=== PATIENT | female | born 1930 | race Caucasian/White ===

== ENCOUNTER → 2016-10-29 | Outpatient (CLI) | payer MEDICARE ==
[~2016-10-29] MED LIST: ALPRAZOLAM0.25 MG PO; ASPIRIN 81MG TA81 MG PO; ASPRIN OR; BISOPROLOL 5MG T5 MG PO; CALCIUM GUMMIES OR; CARTIA XT240 MG PO; CEFTIN500 MG PO; CELEBREX200 MG PO; CENTRUM SILVER1 TA2 PO; COMM1 XX; COUMADIN 5MG TAB5 MG PO; COUMADIN2 MG PO; CYMBALTA60 M1 PO; DIGOXIN0.125 MG PO; DILTIAZEM ER 1120 MG PO; DILTIAZEM30 MG PO; FERROUS SULFAT325 MG PO; FUROSEMIDE 20MG20 MG PO; GABAPENTIN300 MG PO; LASIX 20MG. TAB20 MG PO; LEVOTHYROXINE0.05 M2 PO; LISINOPRIL2.5 M1 PO; MIDODRINE HCL5 MG PO; MIRALAX17 GM/DOSE PO; MOBIC15 MG PO; NIRAVAM0.25 MG PO; NITROSTAT0.4 MG SL; OMEPRAZOLE40 MG PO; OSCAL 500MG. T500 MG PO; PERCOCET 5/3251 EACH PO; POTASSIUM CHLO10 ME3 PO; SERTRALINE 100100 MG PO; SYNTHROID0.025 MG PO; TYLENOL W/CODEI1 TA2 PO; VITAMIN D31000 IU PO; WALK4 XX; WARFARIN 3MG TAB3 MG PO; WARFARIN SOD5 M1 PO; WARFARIN SODIU2.5 MG PO
--- NOTE | 2016-10-29 14:16 | RADIOLOGY REPORT PS360 ---
PROCEDURE: 2-D M-mode and color Doppler study INDICATIONS FOR THE TEST: Chest pain COPD Heart Murmur Tobacco Smoking Palpitations Fatigue Syncope Edema HypertensionXDiabetes Mellitus Rheumatic Fever SOBXDOE Obesity HyperlipidemiaX Family History HD Additional History CAD AF PACEMAKER PATIENT INFORMATION HEIGHT: 61 WEIGHT:105 GENDER: Female B/P:125/65 2-D/M-MODE INTERPRETATION: 2-D MEASUREMENTS OBSERVED VALUES IN CMS Right Ventricular Dimension (RVDd) 2.1 Interventricular Septum (Thickness)(IVsd) 1.0 Left Ventricular Internal Dimensions(LVIDd) 4.4 Left Ventricular Posterior Wall (Thickness)(LVPWd) .9 Aortic Root 2.5 Aortic Cusp Separation 1.0 Left Atrial Dimensions (LAD) 3.8 2D 1. Left atrium is qualitatively moderately enlarged, left ventricle is normal size, there is no concentric left ventricular hypertrophy, visually estimated ejection fraction of 55% with no obvious regional wall motion abnormality. 2. The right atrium is moderately enlarged, right ventricle is mildly dilated with normal contractility, there is pacemaker lead seen in the right atrium and right ventricle. 3. The aortic valve is thickened and calcified with mild restriction the leaflet mobility. 4. The mitral valve leaflets are minimally thickened, there is mild mitral calcification present. 5. The tricuspid valve leaflets are minimally thickened. 6. The pulmonic valve is not well visualized. 7. No significant pericardial effusion noted. DOPPLER INTERROGATION: 1. The aortic outflow velocities mildly increased, does not represent any significant aortic stenosis, there is mild aortic insufficiency present. 2. Mitral inflow velocity within normal range, there is no mitral stenosis, there is moderate mitral regurgitation. 3. There is moderate to severe tricuspid regurgitation seen, calculated right ventricular systolic pressure is 50 mmHg consistent with moderate pulmonary hypertension. CONCLUSION: 1. Moderate biatrial enlargement, normal left ventricular size, visually estimated ejection fraction 55% with no obvious regional wall motion abnormality. 2. Thickened and calcified aortic valve without significant aortic stenosis, there is mild aortic insufficiency. 3. Moderate mitral and moderate to severe tricuspid regurgitation, calculated right ventricular systolic pressure 50 mmHg consistent moderate pulmonary hypertension, inferior vena cava is mildly dilated with normal inspiratory collapse. 4. No significant pericardial effusion noted.
== END ==
LOC: RT 08:49
DX: I25.10 Atherosclerotic heart disease of native coronary artery without angina pectoris (principal); I48.0 Paroxysmal atrial fibrillation; I11.9 Hypertensive heart disease without heart failure; I34.0 Nonrheumatic mitral (valve) insufficiency; E78.5 Hyperlipidemia, unspecified; Z79.01 Long term (current) use of anticoagulants

== ENCOUNTER 2017-05-23 18:13 | Inpatient (IN) | payer MEDICARE ==
[~2017-05-23] VITALS: Ht 162.6 cm; Wt 48.7 kg
[~2017-05-23 18:13] MED LIST changes: +ALPRAZOLAM XR0.5 MG PO; -ALPRAZOLAM0.25 MG PO; +CARTIA XT180 M1 PO; -CARTIA XT240 MG PO
[2017-05-23 18:15] VITALS: BP 161/100
[2017-05-23] MEDS ORDERED: CELECOXIB200 MG PO (18:17)
--- NOTE | 2017-05-23 18:27 | Emergency Room Report ---
History of Present Illness Time Seen by [id number] Presenting Problem in Triage Pt arrived: Presenting Problem: Onset of symptoms date/time:/ or onset unknown for: Treatment Prior to Arrival: LINE WELDER Provided by: Sepsis Risk Assessment: Temp: B/P: MAP: Pulse: Resp: Recent fever? Clinical Suspician of Infection? Mental Status: Sepsis Risk: Have you (or family members/close friends) recently traveled outside the [place]? If Yes, where/when: Have you had exposure to infectious disease within the past month? TB? Other? Specify: Source patient, RN notes reviewed Exam Limitations no limitations [place] car and placed it on her walker, she was intending to put her coat on but instead fell onto her back and now comes to the ED with severe pain in her back and her right hip. She denies any LOC and she answers questions appropriately Cardiac Chest Pain Chest pain indicative of cardiac No ALLERGIES Coded Allergies: amiodarone (Mild, 03/05/16) Home Medications Active Scripts Warfarin Sodium (Coumadin) 2 MG PO DAILY #30 TAB Prov: 05/19/15 Ferrous Sulfate 325 MG PO TID #90 ECT Ref 2 Prov: 05/19/15 Device (Walker, Rolling (4-Wheel)) 1 UNIT XX UD #1 Prov: 05/19/15 Device (Commode, Bedside) 1 UNIT XX UD #1 DEV Prov: 05/19/15 Reported Medications Midodrine Hydrochloride (Midodrine Hcl) 5 MG PO TID Furosemide (Lasix 20MG) 20 MG PO QODP DILTIAZEM HCL (Cartia Xt) 240 MG PO DAILY Omeprazole (Omeprazole 40MG) 40 MG PO QHS Levothyroxine Sodium 50 MCG PO DAILY DULOXETINE HCL (Cymbalta) 60 MG PO DAILY ALPRAZOLAM (Alprazolam 0.25MG) 0.25 MG PO TIDP DIGOXIN (Digox) 0.125 MG PO BID BISOPROLOL FUMARATE (Bisoprolol 5MG) 5 MG PO DAILY Celecoxib 200 MG PO DAILY Multivitamin/Iron/Folic Acid (Centrum Adults Tablet) 1 EACH PO DAILY POTASSIUM CHL (Potassium Chloride) 10 MEQ PO QOD OXYCODONE HCL/ACETAMINOPHEN (Oxycodon-Acetaminophen 2.5-325) 1 TAB PO Q6HP PRN PAIN #60 CHOLECALCIFEROL (VITAMIN D3) (Vitamin D3) 1,000 IUNITS PO DAILY History Medical History General CAD? No Angina: Yes NV: No Hypertension? Yes Hyperlipidemia? No CHF? Yes DVT? No PE? No COPD? No Asthma? No Anemia? Yes GERD? Yes Gastric ulcers? No Hernia? Yes Thyroid Problems? Yes Hypothyroidism? Yes CVA? Yes Seizures? No Diabetes? No End Stage Renal Disease? No UTI? Yes Stones? Yes GB Disease: Yes Nephritic Syndrome? No Asplenia? No Hepatitis? No Sickle Cell Disease? No Arthritis? Yes Cataracts? Yes Glaucoma? No MRSA? No TB? No Anxiety? Yes Cancer? Yes Site: L BREAST More? No Additional hx: 1. Atrial Fib 2. Chronic Back Pain Immunization Hx DT/Tetanus > 10 Years Ago Flu 2015-FSN Pneumonia Received In Past Surgical Hx Previous Surgery?Y BACK X2 MASTECTOMY L Cholecystectomy RECONSTRUCTIVE BREAST L BILATERAL CATARACTS CUSTOM PROTECTION OFFICER Hx LMP N/A Family History Family Hx Diabetes No CAD Yes Hypertension Yes Hyperlipidemia Yes Cancer Yes TB No Social History Smoking Hx Packs/day N/A Alcohol Alcohol: No Review of Systems All Other Systems Reviewed and Negative Constitutional see HPI Musculoskeletal see HPI Psychiatric/Neurological see HPI Physical Exam Vital Signs Vital Signs Date Time Temp Pulse Resp B/P Pulse O2 O2 Flow FiO2 Ox Delivery Rate 05/23 2006 98.0 85 18 142/80 77 05/23 1829 18 05/23 1815 98.0 88 20 161/100 90 General Appearance moderate distress Neck collar in place Respiratory Status No: respiratory distress. Cardiovascular normal exam, regular rate/rhythm Extremities painful to try to move right hip Neurologic alert, customer engagement specialist II-XII nml as tested Medical Decision Making LABS/Meds/Orders Pt receiving controlled substance in ED? Yes Ben was queried for this patient? No Reason not queried - emergent pt cond=no time Results/Orders Laboratory Tests 05/23/171956: B-Natriuretic Peptide Pending 05/23/171956: Sodium Pending, Potassium Pending, Chloride Pending, Carbon Dioxide Pending, BUN Pending, Creatinine Pending, Estimated Creat Clear Pending, Estimated GFR (MDRD) Pending, Glucose Pending, Calcium Pending, Total Bilirubin Pending, AST Pending, ALT Pending, Alkaline Phosphatase Pending, Creatine Kinase Pending, Total Protein Pending, Albumin Pending, Globulin Pending, Albumin/Globulin Ratio Pending, PT Pending, INR Pending, WBC 10.7, RBC 4.19 L, Hgb 12.9, Hct 41.3, MCV 98.7 H, RDW 14.6, Plt Count 276, MPV 8.2, Gran % 85.8 H, Gran # 9.2 H, Total Counted Pending, Lymphocytes % 5.8 L, Monocytes % 4.9, Eosinophils % 3.0, Basophils % 0.6, Neutrophils Pending, Lymphocytes (Manual) Pending, Lymphocytes # 0.6 L, Monocytes # 0.5, Eosinophils # 0.3, Basophils # 0.1, Platelet Estimate Pending, PUBS MCHC 31.2 L, MCH 30.7 Current Medication Orders Sig/Spencer Start time Last Medication Dose Route Stop Time Status Admin Morphine Sulfate 4 MG ONCE ONE 05/23 1830 DC 05/23 IV 05/23 Ondansetron HCl 4 MG ONCE ONE 05/23 1830 DC 05/23 IV 05/23 Ondansetron HCl 0 .STK-MED ONE 05/23 1827 DC .ROUTE Morphine Sulfate 0 .STK-MED ONE 05/23 1826 DC .ROUTE Orders Procedure Date/time Status DIET-NOTHING BY MOUTH 05/24 B Active CHEST-PORTABLE 05/23 2017 Active PROTHROMBIN TIME 05/23 2017 Active BRAIN NATRIURETIC PEPTIDE 05/23 2017 Active DIFFERENTIAL-WBC 05/23 1957 Active CHEST-AP VIEW ONLY 05/[address] THORACIC SPINE W/O CONTRAST 05/[address] LUMBAR SPINE W/O CONTRAST 05/[address] CERVICAL SPINE W/O CONT. 05/[address] SCAN REQ 05/[address] SCAN REQ 05/23 183 Complete HIP RT 2-3V W/PELVIS IF PERFOR 05/23 1823 Active CPK 05/23 1823 Active CBC WITH AUTO DIFF 05/23 1823 Active CHEM 12 PROFILE 05/23 1823 Active Departure Departure Time of Disposition 2012 Disposition Still a Patient Clinical Impression Primary Impression: Chronic atrial fibrillation Secondary Impressions: Cardiac pacemaker in situ Fracture of right hip requiring operative repair Qualifiers: Encounter type: subsequent encounter Fracture type: closed Fracture healing: with routine healing Qualified Code: S72.001D - Fracture of unspecified part of neck of right femur, subsequent encounter for closed fracture with routine healing Condition STABLE Referrals Kendrick Saleh MD (Family) Additional Instructions Being made a full Admit to Dr. Saleh with Dr. Roman covering and referral to Dr. Villasenor Discharge Counseling Counseled pt/family regarding diagnosis, test results, medications/RX, home care, follow up needs ED Critical Care Critical Care No If Critical Care minutes are documented, the time involved in the performance of seperately reportable procedures was not counted toward critical care time documented. I directly delivered medical care to this critically ill and/or injured patient. Timely evaluation and treatment was necessary to address the significant organ system(s) dysfunction present in this patient. at 2020
[2017-05-23] MEDS ORDERED: POTASSIUM CHLO10 ME3 PO (18:29)
[2017-05-23] MEDS ORDERED: CENTRUM ADULTS1 EACH PO (18:29)
[2017-05-23] MEDS ORDERED: OXYCODONE AND A1 TA3 PO (18:30)
[2017-05-23] MEDS ORDERED: VITAMIN D-32000 UNIT PO (18:37)
--- OUTSIDE RECORDS SUMMARY | 2017-05-23 18:37 | External Medical Summary Rpt | CCD ---
Author Author Conduent Organization [employer] Address Unknown Phone Unavailable Purpose Continuity of Care Document - through 2016
--- OUTSIDE RECORDS SUMMARY | 2017-05-23 18:37 | External Medical Summary Rpt | CCD ---
Author Author , JING CH Address Unknown Phone [email or web address] Care Team Providers Care Od Grinder Operator Name Role Phone [facility], Purpose Continuity of Care Document - 09-27-2012 through 2016 Problems Code Diagnosis DOS Provider Status [id number] Chest pain Allergies, Adverse Reactions, Alerts Type Drug Allergy Adverse Reaction to Substance Substance Reaction Severity Amiodarone NA-DIZZINESS Unknown Vital Signs 09-27-2012 07:56 Name Value Interpretat Reference Comment ion Range BP 76 mm[Hg] Diastolic BP Systolic 137 mm[Hg] Heart 90 /min Rate/Pulse O2% 94 % Respiratory 20 /min Rate 09-27-2012 07:49 Name Value Interpretat Reference Comment ion Range Body 97.8 [degF] Temperature 09-27-2012 07:18 Name Value Interpretat Reference Comment ion Range Body 97.8 [degF] Temperature BP 103 mm[Hg] Diastolic BP Systolic 125 mm[Hg] Heart 101 /min Rate/Pulse O2% 94 % Respiratory 18 /min Rate Results Labs Lab Lab Date Result Refere Interp Status Commen Order Detail nces retati t Range on COMPREHENSIVE METABOLIC PANEL (09-27-2012 06:38) Glucose 91 74-106 complet 013 mg/dL ed Bld-mCn 06:38 c BUN 14 7-18 complet Bld-mCn 013 mg/dL ed c 06:38 Creat 0.9 0.6-1.0 complet SerPl-m 013 mg/dL ed Cnc 06:38 GFR 60 59- complet (ESTIMA 013 ML/MIN ed CESILIA) 06:38 Sodium 136 136-145 complet SerPl-s 013 mmoL/L ed Cnc 06:38 Potassi 04-02-2 3.9 3.5-5.1 complet um 013 mmoL/L ed SerPl-s 06:38 Cnc Chlorid 09-27-2 102 98-107 complet e 013 mmoL/L ed SerPl-s 06:38 Cnc CO2 02-2 27 21.0-32 complet SerPl-s 013 mmoL/L .0 ed Cnc 06:38 Calcium 04-02-2 8.9 8.5-10. complet 013 mg/dL 1 ed SerPl-m 06:38 Cnc Prot -02-2 7.2 6.4-8.2 complet SerPl-m 013 gm/dL ed Cnc 06:38 Albumin 04-02-2 3.4 3.4-5.0 complet 013 gm/dL ed SerPl-m 06:38 Cnc Globuli 09-27-2 3.8 1.3-3.2 complet n 013 gm/dL ed Ser-mCn 06:38 c Albumin 02-2 0.9 UNK 1.1-1.8 complet /Glob 013 ed SerPl-m 06:38 Rto Bilirub 09-27-2 0.4 0.2-1.0 complet 013 mg/dL ed SerPl-m 06:38 Cnc AST 02-2 23 U/L 15-37 complet SerPl-c 013 ed Cnc 06:38 ALT 02-2 30 U/L 30-65 complet SerPl-c 013 ed Cnc 06:38 ALP 02-2 97 U/L 50-136 complet SerPl-c 013 ed Cnc 06:38 PROTIME/INR (09-27-2012 06:38) PROTHRO -02-2 21.3 9.8-11. complet MBIN 013 SECONDS 0 ed TIME 06:38 INR Bld 09-27-2 2.06 0.9-1.1 complet 013 UNK ed 06:38 CBC with AUTO DIFF (09-27-2012 06:38) WBC # 04-02-2 6.4 4.8-10. complet Bld 013 K/MM3 8 ed Auto 06:38 RBC # 04-02-2 4.62 4.2-5.4 complet Bld 013 M/mm3 ed Auto 06:38 Hgb 04-02-2 13.0 12.2-16 complet Bld-mCn 013 g/dL .2 ed c 06:38 Hct Fr 02-2 40.4 % 37.0-47 complet Bld 013 .0 ed 06:38 MCV RBC -02-2 87.4 fl 82.2-97 complet 013 .8 ed 06:38 MCH RBC -02-2 28.1 pg 27-31.2 complet Qn 013 ed Auto 06:38 MEAN 02-2 32.1 31.8-35 complet CORPUSC 013 g/dl .4 ed ULAR 06:38 HGB CONC RDW RBC 02-2 15.0 % 11.5-17 complet Auto 013 .5 ed 06:38 Platele 09-27-2 221 142-424 complet t Bld 013 K/mm3 ed Ql 06:38 Manual MEAN 8.0 fl 7.4-10. complet PLATELE 013 4 ed T 06:38 VOLUME Granulo 02-2 71.5 % 37.0-80 complet cytes 013 .0 ed Fr Bld 06:38 Auto LYMPH % 02-2 16.6 % 10-50.0 complet 013 ed 06:38 Monocyt 0402-2 6.9 % 1.7-9.3 complet es Fr 013 ed Bld 06:38 Auto Eosinop 04-02-2 4.4 % 0.1-12. complet hil Fr 013 0 ed Bld 06:38 Auto Basophi -02-2 0.6 % 0.1-2.0 complet ls Fr 013 ed Bld 06:38 Auto Granulo -02-2 4.6 1.8-7.8 complet cytes # 013 K/mm3 ed Bld 06:38 Auto Lymphoc 04-02-2 1.1 0.7-4.5 complet ytes Fr 013 K/mm3 ed Bld 06:38 Auto Monocyt 04-02-2 0.4 0.1-1.0 complet es # 013 K/mm3 ed Bld 06:38 Auto Eosinop 04-02-2 0.3 0.0-0.4 complet hil # 013 K/mm3 ed Bld 06:38 Auto Basophi -02-2 0.0 0-0.2 complet ls # 013 K/MM3 ed Bld 06:38 Auto Encounters Encounter Start End Date Code Location Performer Type Date Emergency KARAN Horvath MD (ER) 3 06:37 3 08:09 [facility]
--- OUTSIDE RECORDS SUMMARY | 2017-05-23 18:37 | External Medical Summary Rpt ---
Author Author JING Ramires, JING Ramires Organization [employer] Address Unknown Phone Unavailable
--- OUTSIDE RECORDS SUMMARY | 2017-05-23 18:37 | External Medical Summary Rpt | CCD ---
Author Author , JING Organization JING Address Unknown Phone [email or web address] [email or web address] Name Date Rout CVX Reac Dose Comm Prov Is Faci e tion ent ider Refu lity Give sed n Infl 11-0 135 0.5 Hist D049 No D049 uenz 7-20 mL oric 01 01 a, 17 al High Info rmat Dose ion - Sour ce Unsp ecif ied Tdap 08-0 Intr 115 0.5 Hist D049 No D049 , 7-20 amus mL oric 01 01 Adso 17 cula al rbed r Info rmat ion - Sour ce Unsp ecif ied PPV2 08-0 Intr 33 0.5 Hist D049 No D049 3 7-20 amus mL oric 01 01 17 cula al r Info rmat ion - Sour ce Unsp ecif ied Td 03-0 Intr 9 999 Hist H149 No H149 (mahog[place] 7-19 amus oric lt), 97 cula al r Info adso rmat rbed ion - Sour ce Unsp ecif ied
--- OUTSIDE RECORDS SUMMARY | 2017-05-23 18:37 | External Medical Summary Rpt | CCD ---
Author Author , JING Organization JING Address Unknown Phone [email or web address] Immunization Name Date Rout CVX Reac Dose [...]
--- OUTSIDE RECORDS SUMMARY | 2017-05-23 18:37 | External Medical Summary Rpt | CCD ---
Author Author , JING CH Address Unknown Phone .[employer] Care Team Providers Care Blueprint Engineer Name Role Phone [facility], Purpose Continuity of Care Document - 09-27-2012 through 2016 Problems Code Diagnosis DOS Provider Status [id number] Chest pain Allergies, Adverse Reactions, Alerts Type [...] Horvath MD (ER) 3 06:37 3 08:09 [facility]
[2017-05-23 20:12] LABS: LYMPH # 0.6 K/mm3 (0.7-4.5); LYMPH % 5.8 % (10-50.0)
[2017-05-23 20:13] LABS: HEMOGLOBIN 12.9 g/dL (12.2-16.2)
--- OUTSIDE RECORDS SUMMARY | 2017-05-23 20:31 | External Medical Summary Rpt | CCD ---
Author Author , JING Organization JING Address Unknown Phone [email or web address] Immunization Name Date Rout CVX Reac Dose [...]
--- OUTSIDE RECORDS SUMMARY | 2017-05-23 20:31 | External Medical Summary Rpt | CCD ---
Author Author , JING Organization JING Address Unknown Phone [email or web address] Immunization Name Date Rout CVX Reac Dose [...]
--- OUTSIDE RECORDS SUMMARY | 2017-05-23 20:31 | External Medical Summary Rpt | CCD ---
Author Author , JING CH Address Unknown Phone [email or web address] Care Team Providers Care Catering Barista Name Role Phone [facility], [facility] Purpose Continuity of Care Document - 09-27-2012 through 2016 Problems Code Diagnosis DOS Provider Status [id number] Chest pain [facility] Allergies, Adverse Reactions, Alerts Type Drug Allergy [...] Horvath MD (ER) 3 06:37 3 08:09 [facility]
--- OUTSIDE RECORDS SUMMARY | 2017-05-23 20:31 | External Medical Summary Rpt | CCD ---
Author Author , JING CH Address Unknown Phone [email or web address] Care Team Providers Care Research Project Manager Name Role Phone [facility], [facility] Purpose Continuity of Care Document - 09-27-2012 through 2016 Problems Code Diagnosis DOS Provider Status [id number] Chest pain [facility] Allergies, Adverse Reactions, Alerts Type Drug [...] Horvath MD (ER) 3 06:37 3 08:09 [facility]
[2017-05-23 21:09] LABS: NEUTROPHILS 89 % (42-76)
--- NOTE | 2017-05-23 21:20 | RADIOLOGY REPORT PS360 ---
CT THORACIC SPINE W/O CONTRAST Ordering Physician: Beka Cadet MD Patient Age: 87 years: Female HISTORY: PT FELL patient fell this evening with thoracic pain cervical and lumbar pain. TECHNIQUE: Patient scanned on backboard. Helical CT scanning performed through the thoracic spine with sagittal reformatted CT workstation COMPARISON :Previous plain films thoracic spine 04/04/2012. Also chest film 12/31/[address] abdomen reconstructions included lower thorax. FINDINGS No acute fracture nor subluxation thoracic spine.. Demineralization. Again see kyphosis of the lumbar spine which is similar CXR studies from earlier this year. Partial fusion anterior aspect of the T 5/6 disc. There is kyphosis of the mid T-spine most pronounced in T5 through T8. Disc space narrowing is seen all these levels reflecting early degenerative disc changes. Anterior marginal osteophytes most evident to this segment at mid T-spine as well. The minor wedge configuration anterior T5 and [id number] on C report is a stable feature which is seen on old T-spine study from 2011. Not of current significance. . No significant posterior hypertrophic ridging. No Spinal stenosis. Foraminal encroachment. Mild facet arthropathy most evident lower pelvis T-spine. No acute compression fractures. . Anterior marginal osteophytes are most evident to the mid T-spine. The disc space narrowing most notable Cardiomegaly. Left atrial enlargement. Particularly notable. Coronary artery calcification or stents.. Chronic changes along with some mild pleural-parenchymal scarring posteriorly. No significant mass lesion evident. Airway satisfactory. IMPRESSION: No acute fracture or subluxation thoracic spine . No significant change since previous plain films T-spine Overall Stable appearing kyphosis & degenerative changes most evident in the T-spine.. Cardiomegaly. LAD. Pulmonary venous engorgement. Question mild vascular congestion..
--- NOTE | 2017-05-23 21:25 | RADIOLOGY REPORT PS360 ---
CT CERVICAL SPINE W/O CONT Ordering Physician: Beka Cadet MD Patient Age: 87 years: Female HISTORY: PT FELL.. neck pain. Thoracic pain. Lumbar pain. TECHNIQUE: Helical CT scanning performed through the cervical spine with sagittal and coronal reconstructions on CT workstation COMPARISON :No previous cervical studies. Previous head CT plywood layup line core layer view from May 13, 2004 does show upper C-spine & the width moderate anterior subluxation of C3 on 4 with moderate subluxation at that time FINDINGS No acute fracture cervical spine. Most likely chronic long-standing progressive subluxation C3 on 4 disc above a segment fused disc at C4/5. Prevertebral soft tissues appear normalThe cervical vertebral bodies with no compression fractures or fracture. . C1 /C2 relationships appears satisfactory. Calcification about the dens. No previous dedicated cervical studies. There is a limited very limited lateral CT plywood layup line core layer view from May 13, [address] study which does vaguely suggest ~4-5 mm anterior subluxation of C3 on 4 in 2003.. Slight progression, more pronounced subluxation today but these changes appear to be slowly progressive long-standing primarily degenerative changes but possibly initiated krks-ac-hpha event, question possibly old fracture at left C3 facet. Today, More pronounced 6 mm anterior subluxation of C3 on 4 noted. Marked disc space narrowing C3/4 with prominent reactive degenerative endplate changes this narrowed C4/5 disc. There is flattening, sclerosis left C3 facet. The left C3 facet rides upward on the C4 facet... Resulting central canal stenosis with mild/moderate Bilateral foraminal encroachment There is fusion at C 4/5 disc. The disc space is no longer evident. Obliterated & Fused.. C5-C6 pronounced disc space narrowing. Mild sclerotic changes mild posterior ridging. Spurring encroaches upon both right and left foraminal and recess is borderline central canal stenosis. C6/7. Moderate disc space narrowing. Mild posterior hypertrophic ridging with spurring the mild encroachment upon both foramen. C7-T1. At this better maintained scant 1.5 mm retrolisthesis C7 on T1-degenerative in nature. No fracture. There is fragmentation at the posterior tip of the spinous process C7 reflecting old changes here. T1/T2 T2/T3 intact. Apices the lungs. Minimal nodularity at the medial left apex is likely related to scarring and measures 6.5 mm.. ------IMPRESSION 1. No acute fracture evident. 2. Chronic appearing subluxation &Degenerative changes throughout C-spine 3. 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 Resulting long-standing Spinal stenosis at this level., warrants correlation. Up to 6 mm anterolisthesis of C3 on 4 on today's study.. (However prior CT scan image from 2003 suggested up to 5 mm listhesis back in 2003).. This listhesis appears due to degenerative disc & facet changes. Decreased height & sclerosis of offset left C3 facet could noted-may reflect old trauma here but clearly long-standing features.. Not acute C4/5. Fusion, obliterates this disc space Prominent degenerative disc changes and spondylosis at C5/6 C6/7 as in text..
--- NOTE | 2017-05-23 21:25 | RADIOLOGY REPORT PS360 ---
CT CERVICAL SPINE W/O CONT Ordering Physician: Beka Cadet MD Patient Age: 87 years: Female HISTORY: PT FELL.. neck pain. Thoracic pain. Lumbar pain. TECHNIQUE: Helical CT scanning performed through the cervical spine with sagittal and coronal reconstructions on CT workstation COMPARISON :No previous cervical studies. Previous head CT sql consultant view from May 13, 2004 does show upper C-spine & the width moderate anterior subluxation of C3 on 4 with moderate subluxation at that time FINDINGS No acute fracture cervical spine. Most likely chronic long-standing progressive subluxation C3 on 4 disc above a segment fused disc at C4/5. Prevertebral soft tissues appear normalThe cervical vertebral bodies with no compression fractures or fracture. . C1 /C2 relationships appears satisfactory. Calcification about the dens. No previous dedicated cervical studies. There is a limited very limited lateral CT sql consultant view from May 13, [address] study which does vaguely suggest ~4-5 mm anterior subluxation of C3 on 4 in 2003.. Slight progression, more pronounced subluxation today but these changes appear to be slowly progressive long-standing primarily degenerative changes but possibly initiated [id number] event, question possibly old fracture at left C3 facet. Today, More pronounced 6 mm anterior subluxation of C3 on 4 noted. Marked disc space narrowing C3/4 with prominent reactive degenerative endplate changes this narrowed C4/5 disc. There is flattening, sclerosis left C3 facet. The left C3 facet rides upward on the C4 facet... Resulting central canal stenosis with mild/moderate Bilateral foraminal encroachment There is fusion at C 4/5 disc. The disc space is no longer evident. Obliterated & Fused.. C5-C6 pronounced disc space narrowing. Mild sclerotic changes mild posterior ridging. Spurring encroaches upon both right and left foraminal and recess is borderline central canal stenosis. C6/7. Moderate disc space narrowing. Mild posterior hypertrophic ridging with spurring the mild encroachment upon both foramen. C7-T1. At this better maintained scant 1.5 mm retrolisthesis C7 on T1-degenerative in nature. No fracture. There is fragmentation at the posterior tip of the spinous process C7 reflecting old changes here. T1/T2 T2/T3 intact. Apices the lungs. Minimal nodularity at the medial left apex is likely related to scarring and measures 6.5 mm.. ------IMPRESSION 1. No acute fracture evident. 2. Chronic appearing subluxation &Degenerative changes throughout C-spine 3. 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 Resulting long-standing Spinal stenosis at this level., warrants correlation. Up to 6 mm anterolisthesis of C3 on 4 on today's study.. (However prior CT scan image from 2003 suggested up to 5 mm listhesis back in 2003).. This listhesis appears due to degenerative disc & facet changes. Decreased height & sclerosis of offset left C3 facet could noted-may reflect old trauma here but clearly long-standing features.. Not acute C4/5. Fusion, obliterates this disc space Prominent degenerative disc changes and spondylosis at C5/6 C6/7 as in text..
--- NOTE | 2017-05-23 22:00 | RADIOLOGY REPORT PS360 ---
CHEST-AP VIEW ONLY Ordering Physician: Kendrick Saleh MD Patient Age: 87 years: Female HISTORY: PT FELL TECHNIQUE: AP portable chest on backboard And 11/16/2016 CXR COMPARISON : 12/31/2016 2 view chest FINDINGS Cardiomegaly again noted with slight additional vascular engorgement versus 12/31/2016. Some of this may reflect the supine position which accentuate upper lobe vascularity. I suspect a backboard overlying density situated markings here at the right midlung. Doubt infiltrate. CT chest from today shows no discrete pneumonia or infiltrates here. Only some mild chronic pleural parenchymal changes at the posterior chest of this region... Which are likely stable. The renzo and mediastinal structures otherwise appear unchanged. No pleural effusion. No pneumothorax. . Underlying COPD IMPRESSION: Limited supine portable chest on backboard. No focal pneumonia . No pneumothorax Prominent cardiomegaly. Pacemaker. Mild vascular engorgement accentuated by AP supine chest technique. Question mild vascular congestion. .
--- NOTE | 2017-05-23 22:04 | RADIOLOGY REPORT PS360 ---
HIP RT 2-3V W/PELVIS IF PERFOR Ordering Physician: Kendrick Saleh MD Patient Age: 87 years: Female HISTORY: fall with injury right hip pain back pain. TECHNIQUE: AP frog-leg view right hip along with AP pelvis COMPARISON : No previous FINDINGS Right hip: Right femoral neck fracture. Basically Subcapital type fracture right hip with mild valgus angulation at the fracture site/[place] of fracture directed medially with mild impaction. Just over 4 mm medial off set of the femoral neck relative to the femoral head... Femoral head otherwise intact. Subtrochanteric region and intertrochanteric region intact. Backboard slightly obscures osseous detail in some areas but overall no additional acute findings. The sacrum appears intact. The left hip appears intact. Dextroscoliosis and degenerative changes lower L-spine.. Demineralization. IMPRESSION: 1. Right femoral neck fracture. Basically subcapital fracture. Mild impaction. Mild Angulation.
--- NOTE | 2017-05-23 22:04 | RADIOLOGY REPORT PS360 ---
HIP RT 2-3V W/PELVIS IF PERFOR Ordering Physician: Kendrick Saleh MD Patient Age: 87 years: Female HISTORY: fall with injury right hip pain back pain. TECHNIQUE: AP frog-leg view right hip along with AP pelvis COMPARISON : No previous FINDINGS Right hip: Right femoral neck fracture. Basically Subcapital type fracture right hip with mild valgus angulation at the fracture site/[place] of fracture directed medially with mild impaction. Just over 4 mm medial off set of the femoral neck relative to the femoral head... Femoral head otherwise intact. Subtrochanteric region and intertrochanteric region intact. Backboard slightly obscures osseous detail in some areas but overall no additional acute findings. The sacrum appears intact. The left hip appears intact. Dextroscoliosis and degenerative changes lower L-spine.. Demineralization. IMPRESSION: 1. Right femoral neck fracture. Basically subcapital fracture. Mild impaction. Mild Angulation.
[2017-05-23 22:42] VITALS: BP 145/85
[2017-05-23 22:46] VITALS: BP 145/85
[2017-05-24] VITALS (16 sets, daily range): BP systolic 107–157; BP diastolic 53–88
[2017-05-24 00:42] LABS: URINE BILIRUBIN - DIPSTICK NEGATIVE (NEG); URINE BLOOD NEGATIVE (NEG)
[2017-05-24 00:52] LABS: URINE SQUAMOUS CELLS 20-50 #/hpf (0-5)
[2017-05-24 07:23] LABS: LYMPH # 0.6 K/mm3 (0.7-4.5); LYMPH % 6.8 % (10-50.0)
--- NOTE | 2017-05-24 08:24 | PHARMACY CLINIC NOTE ---
Patient Demographics Patient Demographics Admission date: 05/23/17 Date: 05/24/17 Time: 0823 Allergies Coded Allergies: amiodarone (Mild, 03/05/16) HEIGHT- FT: 5 IN: 1.00 K.617 VTE General Information Labs: Laboratory Tests 05/24 Coagulation PT (9.4 - 11.8 SECONDS) 23.4 H 22.0 H INR (0.9 - 1.1) 2.15 H 2.02 H Hematology Hgb (12.2 - 16.2 g/dL) 13.0 12.9 Hct (37.0 - 47.0 %) 41.1 41.3 Plt Count (142 - 424 K/mm3) 238 276 Disclaimer The following section includes nursing documentation that has been pulled in for pharmacy review. Patient's VTE score: 8 Patient's VTE Risk: MOD RISK Clinical trial participant? No VTE prophylaxis NQF [id number] VTE prophylaxis ordered? Yes Type of prophylaxis/treatment: Lovenox at 0823
--- NOTE | 2017-05-24 08:58 | RADIOLOGY REPORT PS360 ---
CT LUMBAR SPINE W/O CONTRAST Ordering Physician: Beka Cadet MD Patient Age: 87 years: Female HISTORY: PT FELL lumbar pain, previous lumbar surgery. Hip fracture. TECHNIQUE: Axial CT scanning performed the lumbar spine with sagittal and coronal reconstruction CT workstation. COMPARISON :CT abdomen pelvis spine reconstructions from March 24, 2012 FINDINGS. Previous lumbar spine surgery. Degenerative changes with slight progression since 2011. No acute fracture. RotoDextroscoliosis again noted most evident at the lower lumbar spine at L4/5 level. Osseous pelvis intact with mild pelvic tilt.. L5 vertebra is transitional in nature with bilateral sacralization. T12 is transitional in nature with small rudimentary ribs L5/S1 no narrowed disc with mild bulging disc at this level. Facet hypertrophy. Mild bilateral foraminal encroachment L4/5. Stable 10 mm anterolisthesis of L4 on L5. Marked degenerative disc space narrowing. Severe facet arthropathy. Previous laminectomy L5/S1. There is been old fusion between the transverse processes of L4-L5 bilaterally. L3/4 degenerative disc space narrowing posteriorly, as progressed since 2011.. Minor anterolisthesis 3 - 4 mm L3 on L4.. There is rightward offset of L3 on L4. Noted.. There is mild diffuse disc bulge,. Facet hypertrophy. The combination of Features yield Bilateral foraminal encroachment... & Moderately pronounced central canal stenosis L2/3. Marked degenerative disc space narrowing with scant 3- 3.5 mm retrolisthesis of L2 on L3 similar to previous study.. Similar to previous study. Spondylosis with Posterior hypertrophic ridging endplate spurring yields mild/moderate encroachment upon the foramen bilaterally along with the facet hypertrophy. L1/2. Mild degenerative disc changes and minimal diffuse disc bulge actually slightly less evident today T12/L1. Mild disc bulge. Facet arthropathy. T11/12 disc intact . T10-11 disc intact.. Vertebral of the lower most T-spine included & unremarkable. . Cardiomegaly. Pacemaker. At the pelvis there is bone graft donor site defect seen at the posterior right iliac bone. ------IMPRESSION: ------- 1.. No Fracture nor Acute Findings.. 2. Postsurgical changes & prominent degenerative changes Lspine. Slight progressive Dextrorotoscoliosis lower L-spine since prior 2011 CT abdomen/pelvis study.. 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 Transitional vertebra at T12 with small rudimentary ribs. 3. Previous laminectomy L4/L5. Stable 10 mm Grade 2 anterolisthesis noted at this level, unchanged since 2012 CT abdomen.. Degenerative hypertrophic facet changes. Moderate bilateral foraminal encroachment L4/5. 4. L3/4. Pronounced central canal spinal stenosis... With Progression degenerative features at this level since 2012 -Slight progression of lumbar spondylosis/degenerative disc changes along with progressive posterior element hypertrophy. Rightward offset of L3 on L4 noted associated with the dextrorotoscoliosis noted. Progressive degenerative disc changes since 2012. 5... Marked degenerative disc changes L2/3 again noted. ,-No significant change 2011... Mild retrolisthesis & mild calcified disc bulge most evident to the right at this level again noted .
--- NOTE | 2017-05-24 09:35 | HISTORY AND PHYSICAL REPORT ---
History and Physical ([facility]CA) Date of admission: 05/23/17 Chief complaint: fractured right hip History: History of Present Illness: Ms Story is an 87 year old female with a history of atrial fib on coumadin, hypothyroidism, polyarthritis, back pain, anemia and previous GI bleed who [place] go [place] tri[place] and fell at home. She was able to kirk herself to the phone and call her daughter. She was brought to [facility] ER via ambulance for evaluation. She was found to have a Fx right hip and was admitted. She was not dizzy and did not pass out. This AM the right hip hurts with movement. She does not recall experiencing any CP or SOB before, during , or after the fall. She denies nausea and is trying to eat breakfast. Past Medical History: Medical History: CAD? No Angina: Yes [place]: No Hypertension? Yes Hyperlipidemia? No CHF? Yes DVT? No PE? No COPD? No Asthma? No Anemia? Yes GERD? Yes Gastric ulcers? No GI Bleed? Yes Hernia? Yes Thyroid Problems? Yes Hypothyroidism? Yes CVA? Yes Seizures? No Diabetes? No UTI? Yes Stones? Yes GB Disease: Yes Nephritic Syndrome? No Asplenia? No Hepatitis? No Sickle Cell Disease? No Arthritis? Yes Migraines? No Cataracts? Yes Glaucoma? No MRSA? No TB? No Anxiety? Yes Cancer? Yes Site: L BREAST More? No Additional hx: 1. Atrial Fib 2. Chronic Back Pain 3. Tricuspid regurg 4. Anxiety disorder 5. Pacemaker Surgical history: Previous Surgery?Y BACK X2 MASTECTOMY L Cholecystectomy RECONSTRUCTIVE BREAST L BILATERAL CATARACTS Allergies: Coded Allergies: amiodarone (Mild, 03/05/16) Family History: Family history: Postive for: CAD. Social History: Smoking Hx Tobacco: No Smoker: Never Smoker Type: N/A Packs/day: N/A Are you exposed to second hand No Alcohol: Alcohol: No Hx of Drug Use: Drug Use? No Review of Systems: ENT No: ear ache, mouth pain, sinus problems, sore throat. Cardiovascular No: chest pain, edema, palpitations. Respiratory No: shortness of air, non-productive, productive cough (sputum). GI No: GERD, abdominal pain, constipation, diarrhea, hematemeis, hematochezia, melena, nausea, vomitting. (female) No: frequency, hematuria. Neurological No: dizziness, headache, seizure, syncope. Musculoskeletal Positive for: joint pain. Physical Exam: Vital signs: Vital Signs Date Time Temp Pulse Resp B/P Pulse O2 O2 Flow FiO2 Ox Delivery Rate 05/24 0826 20 05/24 0738 97.7 111 20 157/79 95 OXYGEN 05/24 0655 2 05/24 0614 2 05/24 0502 2 05/24 0401 2 05/24 0401 97.5 105 18 151/81 97 OXYGEN 2 05/24 0309 18 05/24 0309 2 05/24 0158 2 05/24 0050 2 05/24 0001 2 05/24 0001 98.1 84 18 125/88 94 OXYGEN 2 05/23 2340 20 05/23 2315 2 05/23 2310 88 05/23 2310 91 OXYGEN 05/23 2246 98.2 88 18 145/85 05/23 2242 98.2 88 18 145/85 91 OXYGEN 2 05/23 2230 2 05/23 2110 98.0 85 18 142/80 77 05/23 2027 18 05/23 2006 98.0 85 18 142/80 77 05/23 1829 18 05/23 181 98.0 88 20 161/100 90 1ST Vital Signs Result Date Time Pulse Ox 90 05/23 181 B/P 161/100 05/23 1815 Temp 98.0 05/23 181 Pulse 88 05/23 181 Resp 20 05/23 1815 O2 Flow Rate 2 05/23 2230 O2 Delivery OXYGEN 05/23 2242 Exam: General appearance: alert, active, no acute distress, frail; sittin up in the bed to eat breakfast Eyes: anicteric, conjunctiva clear, pupils reactive to light ENT: mucous membranes moist, pharynx normal Neck: lymphadenopathy (absent), thyroid (normal), carotids with radiating murmur Cardiovascular: regular rate & rhythm, murmur Respiratory: clear to auscultation (bilat anterior and posterior) ABD: non-distended, soft, no tenderness, bowel sounds present Genitourinary: catheter in place Extremities: no peripheral edema Musculoskeletal: right leg in Jones's traction Neuro: alert, oriented, speech clear Lab data: Labs: Laboratory Tests 05/24/17 0655: Sodium 140, Potassium 4.5, Chloride 104, Carbon Dioxide 32, BUN 21 H, Creatinine 0.8, Estimated Creat Clear 41 L, Estimated GFR (MDRD) 68, Glucose 97 , Calcium 8.9 05/24/17 0655: B-Natriuretic Peptide 1290 H, PT 23.4 H, INR 2.15 H, WBC 9.2, RBC 4.17 L, Hgb 13.0, Hct 41.1, MCV 98.4 H, RDW 14.5, Plt Count 238, MPV 8.2, Gran % 83.0 H, Gran # 7.6, Lymphocytes % 6.8 L, Monocytes % 6.3, Eosinophils % 3.4, Basophils % 0.5, Lymphocytes # 0.6 L, Monocytes # 0.6, Eosinophils # 0.3, Basophils # 0.1, PUBS MCHC 31.5 L, MCH 31.0 05/23/17 0319: Urine Color YELLOW, Urine Appearance CLOUDY, Urine pH 6.5, Ur Specific [place] 1.025, Urine Protein 1+ H, Urine Ketones NEGATIVE, Urine Blood NEGATIVE, Urine Nitrate NEGATIVE, Urine Bilirubin NEGATIVE, Urine Urobilinogen 0.2, Ur Leukocyte Esterase NEGATIVE, Ur Squamous Epith Cells 20-50, Urine Bacteria 2+, Urine Glucose NEGATIVE 05/23/171956: B-Natriuretic Peptide 995 H 05/23/171956: Sodium 140, Potassium 4.2, Chloride 102, Carbon Dioxide 30, BUN 27 H, Creatinine 1.1 H, Estimated Creat Clear 26 L, Estimated GFR (MDRD) 47 L, Glucose 105, Calcium 9.4, Total Bilirubin 0.5, AST 24, ALT 33, Alkaline Phosphatase 104, Creatine Kinase 35, Total Protein 7.9, Albumin 3.4, Globulin 4.5 H, Albumin/Globulin Ratio 0.8 L, PT 22.0 H, INR 2.02 H, WBC 10.7, RBC 4.19 L, Hgb 12.9, Hct 41.3, MCV 98.7 H, RDW 14.6, Plt Count 276, MPV 8.2, Gran % 85.8 H, Gran # 9.2 H, Total Counted 100, Lymphocytes % 5.8 L, Monocytes % 4.9, Eosinophils % 3.0, Basophils % 0.6, Neutrophils 89 H, Band Neutrophils 4, Lymphocytes (Manual) 5 L, Lymphocytes # 0.6 L, Monocytes (Manual) 2, Monocytes # 0.5, Eosinophils # 0.3, Basophils # 0.1, Toxic Granulation SL., Platelet Estimate NORMAL, Polychromasia 1+, Hypochromasia 2+, Poikilocytosis SL., Rouleaux SL., PUBS MCHC 31.2 L, MCH 30.7 Microbiology 05/23 1581 URINE CATH: Urine Culture - RECD Radiology results: Results: 05/23/17 Right hip X-ray IMPRESSION: 1. Right femoral neck fracture. Basically subcapital fracture. Mild impaction. Mild Angulation. 05/23/17 CT of cervical spine ------IMPRESSION 1. No acute fracture evident. 2. Chronic appearing subluxation &Degenerative changes throughout C-spine 3. 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 Resulting long-standing Spinal stenosis at this level., warrants correlation. Up to 6 mm anterolisthesis of C3 on 4 on today's study.. (However prior CT scan image from 2003 suggested up to 5 mm listhesis back in 2003).. This listhesis appears due to degenerative disc & facet changes. Decreased height & sclerosis of offset left C3 facet could noted-may reflect old trauma here but clearly long-standing features.. Not acute C4/5. Fusion, obliterates this disc space Prominent degenerative disc changes and spondylosis at C5/6 C6/[address] of lumbar spine 05/23/17. ------IMPRESSION: ------- 1.. No Fracture nor Acute Findings.. 2. Postsurgical changes & prominent degenerative changes Lspine. Slight progressive Dextrorotoscoliosis lower L-spine since prior 2011 CT abdomen/pelvis study.. 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 Transitional vertebra at T12 with small rudimentary ribs. 3. Previous laminectomy L4/L5. Stable 10 mm Grade 2 anterolisthesis noted at this level, unchanged since 2012 CT abdomen.. Degenerative hypertrophic facet changes. Moderate bilateral foraminal encroachment L4/5. 4. L3/4. Pronounced central canal spinal stenosis... With Progression degenerative features at this level since 2012 -Slight progression of lumbar spondylosis/degenerative disc changes along with progressive posterior element hypertrophy. Rightward offset of L3 on L4 noted associated with the dextrorotoscoliosis noted. Progressive degenerative disc changes since 2011. 5... Marked degenerative disc changes L2/3 again noted. ,-No significant change 2011... Mild retrolisthesis & mild calcified disc bulge most evident to the right at this level again noted CT of thoracic spine IMPRESSION: No acute fracture or subluxation thoracic spine . No significant change since previous plain films T-spine Overall Stable appearing kyphosis & degenerative changes most evident in the T-spine.. Cardiomegaly. LAD. Pulmonary venous engorgement. Question mild vascular congestion.. . 05/23/17 CXR IMPRESSION: Limited supine portable chest on backboard. No focal pneumonia . No pneumothorax Prominent cardiomegaly. Pacemaker. Mild vascular engorgement accentuated by AP supine chest technique. Question mild vascular congestion. Diagnosis(es): 1. Fracture of right hip requiring operative repair 2. Cardiac pacemaker in situ 3. Anemia, unspecified Status: Acute 4. Long-term (current) use of anticoagulants Status: Chronic 5. Chronic atrial fibrillation Status: Chronic 6. Valvular heart disease Status: Chronic 7. Polyarthralgia Plan: preop EKG; ortho consult; comfort measures (Irma Cortes APRN) Past Medical History: Medications: Active Scripts Warfarin Sodium (Coumadin) 2 MG PO DAILY #30 TAB Prov: 05/19/15 Device (Walker, Rolling (4-Wheel)) 1 UNIT XX UD #1 Prov: 05/19/15 Device (Commode, Bedside) 1 UNIT XX UD #1 DEV Prov: 05/19/15 Reported Medications Alprazolam (Alprazolam Xr) 0.5 MG PO QAM Furosemide (Lasix 20MG) 20 MG PO QOD BISOPROLOL FUMARATE (Bisoprolol 5MG) 2.5 MG PO BID Diltiazem HCl (Cartia Xt) 180 MG PO DAILY Omeprazole (Omeprazole 40MG) 40 MG PO BID Midodrine Hydrochloride (Midodrine Hcl) 5 MG PO TID Cholecalciferol (Vitamin D3) (Vitamin D-3) 2,000 UNIT PO DAILY Ferrous Sulfate (Ferrous Sulfate 325MG) 325 MG PO BID Levothyroxine Sodium 50 MCG PO DAILY DULOXETINE HCL (Cymbalta) 60 MG PO DAILY DIGOXIN (Digox) 0.125 MG PO BID Celecoxib 200 MG PO DAILY Multivitamin/Iron/Folic Acid (Centrum Adults Tablet) 1 EACH PO DAILY POTASSIUM CHL (Potassium Chloride) 10 MEQ PO QOD OXYCODONE HCL/ACETAMINOPHEN (Oxycodon-Acetaminophen 2.5-325) 1 TAB PO Q6HP PRN PAIN #60 Diagnosis(es): 1. Fracture of right hip requiring operative repair 2. Cardiac pacemaker in situ 3. Anemia, unspecified Status: Acute 4. Long-term (current) use of anticoagulants Status: Chronic 5. Chronic atrial fibrillation Status: Chronic 6. Valvular heart disease Status: Chronic 7. Polyarthralgia Plan: Patient seen and agree with above note. (Kendrick Saleh MD) at 0921 at [phone]
[2017-05-24] MEDS ORDERED: FERROUS SULFAT325 M2 PO (10:18)
--- NOTE | 2017-05-24 12:16 | RADIOLOGY REPORT PS360 ---
CT EXT.LOWER-RT-W/O CONTRAST INDICATION: Right hip pain following injury, abnormal radiograph, right hip fracture 3D RECON OF RIGHT HIP ORDERING PHYSICIAN: Kendrick Saleh MD PATIENT AGE: 87 years COMPARISON: Radiograph 05/24/2017 TECHNIQUE: Axial images are obtained without contrast. Sagittal and coronal reformatted images are reviewed as well. FINDINGS: There is a mildly impacted fracture involving the proximal aspect of the femoral neck toward the subcapital region with minimal medial displacement of the distal fracture fragment by approximately 4 mm.. There is mild valgus angulation of the distal fracture fragment and mild impaction without significant displacement. Right hip joint effusion/hemarthrosis noted. There is a Valdez catheter present. IMPRESSION: Nondisplaced mildly impacted right femoral neck fracture towards the subcapital region with mild valgus angulation and medial displacement of the distal fracture fragment
--- NOTE | 2017-05-24 13:46 | CONSULT NOTE ---
Consultation findings: Referring physician: Dr. Saleh Date of examination: 05/24/17 Time of examination: 929 Exam findings: The patient is an 87-year-old female who, while at home, fell backwards and incurred a RIGHT hip fracture. She usually ambulates using a walker. The fall was not associated with loss of consciousness. She was admitted last night and placed in 5 pounds of [place] traction. Examination shows the patient to be alert and oriented. She is a good historian and recalls having had at least two and possibly three lumbar spine surgeries. She has a history of atrial fibrillation and currently takes Coumadin. Examination shows unrestricted neck range of motion for her age. She has no C- spine tenderness or step-off. No tenderness or step-off is present in the thoracic spine or lumbar spine. Her pelvis is stable to compression and distraction. Patient's upper extremity examination shows her able to lift her arms above her shoulders anteriorly next to rotate at the shoulder, fully flex and extend elbows supinate and pronate and move her wrist and hands without evident deformity crepitus or pain. Peripheral pulses are intact and she is sensate. No tenderness in the chest wall. Lower extremity examination shows the RIGHT lower extremity to be in [place] traction. Skin is overall in good condition. Pedal pulses are intact bilaterally and the patient is sensate to light touch bilaterally. X-rays are reviewed and they show a valgus impacted subcapital hip fracture with mild posterior displacement. This would be a Garden III type fracture. A CT scan had been requested to evaluate whether a distal fracture planes in the hip are present and to ensure that this valgus impacted fracture would be suitable for screw fixation. It shows no significant evidence of fracture planes which would compromise screw fixation and the fracture pattern will allow screws. Impression: Valgus impacted Garden III RIGHT subcapital hip fracture in an 87-year-old female with medical problems including atrial fibrillation Recommendations: I have described the fracture and drawn it on the dry erase board for the patient and her daughter. We have discussed bipolar hemiarthroplasty and its resultant risks and benefits and we've also discussed screw fixation of this fracture. During the course that discussion I did mention that many orthopedic surgeons would prefer to do a hemiarthroplasty. There are benefits to doing in situ screw fixation and we've discussed these as well. After a thorough discussion of the risks and benefits and thorough discussion of avascular necrosis may ensue and force us to do a bipolar hemiarthroplasty later, we have elected to proceed with the screw fixation in situ. This gives us the advantage of being able to do it today without having to wait on her INR to lower, and also gives us advantage of having less risk of sacral decubitus ulceration. I discussed this plan with by colleague, Dr. Burdick, who concurs. As the patient has eaten breakfast, we will plan on anesthesia at approximately 1600 today. at 1348
--- NOTE | 2017-05-24 17:14 | Anesthesia Record ---
Anesthesia Record Part II Discharge time: 1739 Destination: Second Floor PACU nurse assessment review? Yes Patient is: Stable Anesthesia complications? No at [id number]
--- NOTE | 2017-05-24 17:14 | Anesthesia Record ---
Anesthesia Record Part I Total IV fluids: 350 EBL (ml): 25 Urine Output: 75 B/P: 133/62 % SaO2: 90 Pulse: 74 Resps: 16 Temp: 97.7 Patient is: Nasal O2, Stable Stable to PACU at: 1709 at 1719
--- NOTE | 2017-05-24 17:22 | RADIOLOGY REPORT PS360 ---
HIP RT 2-3V W/PELVIS IF PERFOR HISTORY: Follow-up surgery RT HIP SCREW FIXATION USING C-ARM GUIDANCE ORDERING PHYSICIAN: Kendrick Saleh MD PATIENT AGE: 87 years COMPARISON: 05/23/2017 FINDINGS: 6 images submitted the C-arm showing interval insertion of 3 long screws from the inferior aspect of the greater trochanter obliquely through the femoral neck fracture into the femoral head region fixating a femoral neck fracture which appears to be in good alignment. IMPRESSION: Good alignment status post ORIF right femoral neck fracture
--- NOTE | 2017-05-24 17:24 | Operative Note ---
Procedure/Operative Record Date of Procedure: 05/24/17 Pre-op diagnosis: Valgus impacted subcapital RIGHT hip fracture Post-op diagnosis: Same Procedure performed: Percutaneous screw fixation RIGHT hip fracture Surgeon: Bon Villasenor Anesthesia: Gen. anesthetic Indications: This 87-year-old female fell and incurred a valgus impacted subcapital RIGHT hip fracture. After long consideration of risks and benefits and options. We've elected for screw fixation of the fracture in situ. This inhibits the procedure as well as alternatives including nonsurgical alternatives had been discussed in detail with a daughter and the patient prior to the surgery. The surgical procedure screw fixation is considered an appropriate standard of care procedure and is considered a life-saving procedure in this patient Findings: Fracture was truly valgus impacted. Adduction in the fracture table with traction applied fail to reduce or improve the position. Bone quality was satisfactory. Excellent purchase was achieved with the superior two screws. The inverted triangle midpoint inferior screw achieved adequate purchase but was also 16 versus 32 mm threads Description of procedure: Placed the operating room, given general anesthetic, and placed in the fracture table and all bony prominences were well padded. We then attempted improvement of the fracture position with traction and internal rotation adduction but when this failed to make any difference, we positioned the patient's of the C-arm could be brought in without hazard to her and prepped and draped in the usual fashion. We made a three-quarter inch incision using C-arm fluoroscopy to obtain the optimal starting position. We then placed a series of three guide pins for the Synthes 6.5 mm cannulated screw set. The first was roughly center and inferior. We then drilled and placed a screw here to see if this would close down the fracture a bit. It did not suite placed two additional pins anterior superior and posterior superior. We checked position with fluoroscopy and ensured we did not inadvertently penetrate the subchondral bone. We then measured and drilled 5.0 mm drill bit and place an 85 mm long, by 32 mm thread screw in the superior anterior position. We then drilled and placed a 90 mm long by 32 mm threaded screw in the superior posterior position. All screws were satisfactory with regard to their position and all were then checked again for appropriate purchase and tightness. We checked for length with C-arm both internal and external rotation and by going from AP to lateral and 15 degree increments. No inadvertent screw penetration was detected. We then irrigated and closed the single 2-0 Vicryl and 3 interrupted vertical mattress sutures of 3-0 nylon. Dressings were applied and the patient was taken to the recovery room in satisfactory condition EBL (ml): 5 Implant: Synthes 6.5 mm cannulated screws as described in the operative report Complications: None Specimens: None at [id number]
--- NOTE | 2017-05-24 17:49 | RADIOLOGY REPORT PS360 ---
HIP RT 2-3V W/PELVIS IF PERFOR HISTORY: Follow-up hip pinning S/P RIGHT HIP NAILING ORDERING PHYSICIAN: Kendrick Saleh MD PATIENT AGE: 87 years COMPARISON: 05/23/2017 FINDINGS: 3 pins have been inserted into the right hip stabilizing the right femoral neck fracture. There is minimal valgus angulation of the distal fracture fragment with no significant displacement. IMPRESSION: Chest post right hip pinning with only minimal varices angulation distal fracture fragment without significant displacement
[2017-05-25] VITALS (8 sets, daily range): BP systolic 104–117; BP diastolic 53–60
[2017-05-25 07:18] LABS: LYMPH # 0.4 K/mm3 (0.7-4.5); LYMPH % 4.6 % (10-50.0)
--- NOTE | 2017-05-25 08:51 | ACUTE CARE PROGRESS NOTE (QUA) ---
Progress Notes Subjective Date 05/25/17 Time 0839 Note "I feel alot better than yesterday"; Had her hip surgery yesterday PM. she did sleep some during the night; She has some POSTOP pain; denies CP and SOB; is trying to eat but is not hungry. Feels like she needs something for her bowels to move Objective Findings Laboratory Tests 05/25/17 0645: Sodium 137, Potassium 4.9, Chloride 102, Carbon Dioxide 28, BUN 25 H, Creatinine 1.1 H, Estimated Creat Clear 30 L, Estimated GFR (MDRD) 47 L, Glucose 153 H, Calcium 8.2 L, WBC 9.5, RBC 3.87 L, Hgb 12.0 L, Hct 38.0, MCV 98.1 H, RDW 14.4, Plt Count 243, MPV 8.3, Gran % 89.7 H, Gran # 8.5 H, Lymphocytes % 4.6 L, Monocytes % 5.2, Eosinophils % 0.3, Basophils % 0.2, Lymphocytes # 0.4 L, Monocytes # 0.5, Eosinophils # 0.0, Basophils # 0.0, PUBS MCHC 31.6 L, MCH 31.1 Vital Signs Date Time Temp Pulse Resp B/P Pulse O2 O2 Flow FiO2 Ox Delivery Rate 05/25 0731 97.8 72 20 114/53 96 OXYGEN 05/25 0630 3 05/25 0630 97.7 72 18 106/60 97 3 05/25 0626 3 05/25 0544 3 05/25 0530 16 05/25 0334 3 05/25 0312 3 05/25 0230 97.5 70 16 104/53 97 3 05/25 0156 3 05/25 0145 3 05/25 0014 3 05/24 2341 18 05/24 2330 3 05/24 233 97.7 74 18 126/57 95 3 05/24 2215 3 05/24 2130 97.8 75 18 110/64 95 3 05/24 2110 3 05/24 2055 3 05/24 2055 3 05/24 2055 93 OXYGEN 3 05/24 2055 93 OXYGEN 3 05/24 2048 111 18 157/79 95 05/24 2030 3 05/24 2030 97.7 70 18 117/56 93 3 05/24 2021 97.7 05/24 2000 97.8 74 16 107/53 93 3 05/24 1930 97.7 80 16 127/63 93 3 05/240 3 05/24 1910 97.7 80 16 127/63 93 3 05/24 1900 97.5 80 16 122/65 93 3 05/24 1833 4 05/24 1830 97.8 76 16 126/63 90 4 05/24 1815 97.6 74 16 134/74 92 4 05/24 1800 97.6 77 20 136/64 92 4 05/24 1745 97.4 73 16 130/67 91 4 05/24 1745 98.0 75 18 129/57 92 OXYGEN 05/24 1736 97.2 74 18 120/62 90 OXYGEN 05/24 1727 97.2 79 20 133/64 91 OXYGEN 05/24 1718 98.1 74 20 124/70 91 OXYGEN 05/24 1713 97.7 74 16 133/62 90 05/24 1709 97.7 74 16 133/62 90 OXYGEN 05/24 1443 2 05/24 1405 98.0 94 20 140/76 95 OXYGEN 05/24 1257 2 05/24 1205 20 05/24 1100 2 05/24 0942 97.7 111 20 157/79 95 2 05/24 0900 2 Current Medications Furosemide 20 MG QOD PO Potassium Chloride 10 MEQ QOD PO Bisoprolol Fumarate 5 MG DAILY PO Diltiazem HCl 240 MG DAILY PO Levothyroxine Sodium 0.05 MG DAILY PO Hydrocodone Bitart/Acetaminophen 0 .STK-MED ONE PO (DC) Hydrocodone Bitart/Acetaminophen 0 .STK-MED ONE PO (DC) Cefazolin Sodium 1 GM Q8H IV (CKD) Sodium Chloride 50 ML Sodium Chloride 1,000 ML .Q25H IV Digoxin 0.125 MG BID PO Midodrine 5 MG TID PO Pantoprazole Sodium 40 MG QHS PO Hydrocodone Bitart/Acetaminophen 2 TAB Q4HP PRN PO Acetaminophen 650 MG Q4HP PRN PO Alprazolam 0.25 MG TIDP PRN PO Influenza Virus Vaccine Quadrival 0.5 ML PRN PRN IM Morphine Sulfate 2 MG Q2HP PRN IV Nicotine 21 MG DAILYP PRN TD Ondansetron HCl 4 MG Q6HP PRN IV Sodium Chloride 10 ML PRN PRN IV Hydrocodone Bitart/Acetaminophen 1 TAB Q4HP PRN PO Sevoflurane 0 .STK-MED ONE IN (DC) Ephedrine Sulfate 0 .STK-MED ONE .ROUTE (DC) Bupivacaine HCl/Epinephrine Bitart 0 .STK-MED ONE IJ (DC) Bupivacaine HCl/Epinephrine Bitart 0 .STK-MED ONE IJ (DC) Acetaminophen 1 ML .STK-MED ONE IV (DC) Dexamethasone Sodium Phosphate 0 .STK-MED ONE .ROUTE (DC) Fentanyl Citrate 0 .STK-MED ONE IV (DC) Lidocaine HCl 0 .STK-MED ONE IJ (DC) Ondansetron HCl 0 .STK-MED ONE .ROUTE (DC) Propofol 0 .STK-MED ONE IV (DC) Lactated Ringer's 1,000 ML .STK-MED ONE IV (DC) Cefazolin Sodium 1 GM ONCE ONE IV (DC) Sodium Chloride 50 ML Morphine Sulfate 0 .STK-MED ONE .ROUTE (DC) Bisoprolol Fumarate 5 MG DAILY PO (DC) Diltiazem HCl 240 MG DAILY PO (DC) Enoxaparin Sodium 30 MG DAILY SC (CAN) Furosemide 20 MG QOD PO (DC) Levothyroxine Sodium 0.05 MG DAILY PO (DC) Potassium Chloride 10 MEQ QOD PO (DC) Sodium Chloride 10 ML PRN PRN IV (DC) Alprazolam 0.25 MG TIDP PRN PO (DC) Digoxin 0.125 MG BID PO (DC) Midodrine 5 MG TID PO (DC) Pantoprazole Sodium 40 MG QHS PO (DC) Acetaminophen 650 MG Q4HP PRN PO (DC) Influenza Virus Vaccine Quadrival 0.5 ML PRN PRN IM (DC) Morphine Sulfate 2 MG Q2HP PRN IV (DC) Nicotine 21 MG DAILYP PRN TD (DC) Ondansetron HCl 4 MG Q6HP PRN IV (DC) Sodium Chloride 1,000 ML .Q25H IV (DC) 05/24 1500 05/24 2300 05/25 0700 Intake Total 360 265 336 Output Total 575 600 Balance 360 -310 -264 Intake, IV 25 336 Intake, Oral 360 240 Intake, Tube 0 Irrigant Output, 0 Emesis Output, 0 Estimated Blood Loss Output, Other 0 Output, Urine 575 600 Patient 116 lb 116 lb 116 lb Weight Last VS-Temp:97.8 B/P:114/53 Pulse:72 Resp:20 SaO2:96 OXYGEN Last weight lbs:116 oz:3 K.702 Method:Bed Scales Exam General appearance: alert, active, no acute distress Cardiovascular: regular rate & rhythm, murmur Respiratory: clear to auscultation (bilat anterior and posterior), diminished BS ABD: soft, no tenderness, no guarding, bowel sounds present Extremities: no peripheral edema, right hip dressing clean and dry; some edema around wound site Neuro: alert, oriented, speech clear Assessment/Plan Problem List 1. Fracture of right hip requiring operative repair 2. Cardiac pacemaker in situ 3. Anemia, unspecified Status: Acute 4. Long-term (current) use of anticoagulants Status: Chronic 5. Chronic atrial fibrillation Status: Chronic 6. Valvular heart disease Status: Chronic 7. Polyarthralgia Patient condition Stable, improving Plan: as per Dr. Villasenor; PT in room to start rehab; will restart coumadin, senokot for her constipation This inpt stay is expected to cross 2 MNs from start of care Yes (Irma Cortes APRN) Assessment/Plan Problem List 1. Fracture of right hip requiring operative repair 2. Cardiac pacemaker in situ 3. Anemia, unspecified Status: Acute 4. Long-term (current) use of anticoagulants Status: Chronic 5. Chronic atrial fibrillation Status: Chronic 6. Valvular heart disease Status: Chronic 7. Polyarthralgia Comments: Patient seen and agree with above note. (Kendrick Saleh MD) at 0850 at 0857
[2017-05-25 10:32] LABS: NEUTROPHILS 88 % (42-76)
[2017-05-26 00:12] VITALS: BP 121/52
[2017-05-26 04:10] VITALS: BP 113/58
[2017-05-26 08:00] VITALS: BP 117/71
--- NOTE | 2017-05-26 08:12 | ACUTE CARE PROGRESS NOTE (QUA) ---
Progress Notes Subjective Date 05/26/17 Time 0810 Note Pt states she is feeling well other than being constipated. She got up and walked a small amount yesterday. She states her pain is under control. She is eating and resting well. Objective Findings Last VS-Temp:96.0 B/P:117/71 Pulse:70 Resp:18 SaO2:90 ROOM AIR Last weight lbs:117 oz:5 K.212 Method:Bed Scales Laboratory Tests 05/25/17 0913: PT 20.5 H, INR 1.89 H Exam General appearance: alert, awake, no acute distress Cardiovascular: regular rate & rhythm Respiratory: clear to auscultation ABD: non-distended, normal bowel sounds, no rebound, soft, no tenderness, no guarding Extremities: no peripheral edema Assessment/Plan Problem List 1. Fracture of right hip requiring operative repair 2. Cardiac pacemaker in situ 3. Anemia, unspecified Status: Acute 4. Long-term (current) use of anticoagulants Status: Chronic 5. Chronic atrial fibrillation Status: Chronic 6. Valvular heart disease Status: Chronic 7. Polyarthralgia 8. Constipation Plan: Pt doing well. Will start on miralax for constipation. This inpt stay is expected to cross 2 MNs from start of care Yes (Antonella Valdovinos) Assessment/Plan Problem List 1. Fracture of right hip requiring operative repair 2. Cardiac pacemaker in situ 3. Anemia, unspecified Status: Acute 4. Long-term (current) use of anticoagulants Status: Chronic 5. Chronic atrial fibrillation Status: Chronic 6. Valvular heart disease Status: Chronic 7. Polyarthralgia 8. Constipation Comments: Patient seen and agree with above note. Plan discharge to SNF today. (Kendrick Saleh MD) at 0811 at 0830
[2017-05-26] MEDS ORDERED: ALPRAZOLAM XR0.5 MG PO (08:33)
[2017-05-26] MEDS ORDERED: PERCOCET1 TAB PO (08:34)
[2017-05-26] MEDS ORDERED: MIRALAX(PO17 GM/1 PA PO (08:35)
[2017-05-26] MEDS ORDERED: SENNA PLUS 50 M1 TAB PO (08:36)
--- NOTE | 2017-05-26 08:46 | DISCHARGE SUMMARY STANDARD ---
Discharge Summary (FCA2) Date of admission: 05/23/17 Date of discharge: 07/26/16 Problem List: 1. Fracture of right hip requiring operative repair 2. Cardiac pacemaker in situ 3. Anemia, unspecified 4. Long-term (current) use of anticoagulants 5. Chronic atrial fibrillation 6. Valvular heart disease 7. Polyarthralgia 8. Constipation History of present illness: History of Present Illness: Ms Story is an 87 year old female with a history of atrial fib on coumadin, hypothyroidism, polyarthritis, back pain, anemia and previous GI bleed who when getting ready to go [facility] tripped and fell at home. She was somehow able to drag herself to the phone and call her daughter. She was brought to [facility] via ambulance for evaluation. She was found to have a Fx right hip and was admitted. She was not dizzy and did not pass out. She denied CP and SOB before, during, and after the fall. Exam on admission: 1ST Vital Signs Result Date Time Pulse Ox 90 05/23 1815 B/P 161/100 05/23 1815 Temp 98.0 05/23 1815 Pulse 88 05/23 1815 Resp 20 05/23 1815 O2 Flow Rate 2 05/23 2230 O2 Delivery OXYGEN 05/23 2242 Exam: General appearance: alert, active, no acute distress, frail; sittin up in the bed to eat breakfast Eyes: anicteric, conjunctiva clear, pupils reactive to light ENT: mucous membranes moist, pharynx normal Neck: lymphadenopathy (absent), thyroid (normal), carotids with radiating murmur Cardiovascular: regular rate & rhythm, murmur Respiratory: clear to auscultation (bilat anterior and posterior) ABD: non-distended, soft, no tenderness, bowel sounds present Genitourinary: catheter in place Extremities: no peripheral edema Musculoskeletal: right leg in Jones's traction Neuro: alert, oriented, speech clear Hospital Course: Patient was seen by Dr Villasenor who on 05/24/17 performed percutaneous screw fixation for the right hip fracture. The following day she worked with PT, sat in a chair and walked a short distance in the [place] [address]. She was eating. She complained of constipation and Miralax was to be started. On 05/26/17 patient was ready to start Rehab at [facility] in [place], [place]. Will remove patricia Laboratory data this visit: Laboratory Tests 05/24/17 0655: Sodium 140, Potassium 4.5, Chloride 104, Carbon Dioxide 32, BUN 21 H, Creatinine 0.8, Estimated Creat Clear 41 L, Estimated GFR (MDRD) 68, Glucose 97 , Calcium 8.9 05/24/17 0655: B-Natriuretic Peptide 1290 H, PT 23.4 H, INR 2.15 H, WBC 9.2, RBC 4.17 L, Hgb 13.0, Hct 41.1, MCV 98.4 H, RDW 14.5, Plt Count 238, MPV 8.2, Gran % 83.0 H, Gran # 7.6, Lymphocytes % 6.8 L, Monocytes % 6.3, Eosinophils % 3.4, Basophils % 0.5, Lymphocytes # 0.6 L, Monocytes # 0.6, Eosinophils # 0.3, Basophils # 0.1, PUBS MCHC 31.5 L, MCH 31.0 05/23/17 6309: Urine Color YELLOW, Urine Appearance CLOUDY, Urine pH 6.5, Ur Specific [place] 1.025, Urine Protein 1+ H, Urine Ketones NEGATIVE, Urine Blood NEGATIVE, Urine Nitrate NEGATIVE, Urine Bilirubin NEGATIVE, Urine Urobilinogen 0.2, Ur Leukocyte Esterase NEGATIVE, Ur Squamous Epith Cells 20-50, Urine Bacteria 2+, Urine Glucose NEGATIVE 05/23/171956: B-Natriuretic Peptide 995 H 05/23/171956: Sodium 140, Potassium 4.2, Chloride 102, Carbon Dioxide 30, BUN 27 H, Creatinine 1.1 H, Estimated Creat Clear 26 L, Estimated GFR (MDRD) 47 L, Glucose 105, Calcium 9.4, Total Bilirubin 0.5, AST 24, ALT 33, Alkaline Phosphatase 104, Creatine Kinase 35, Total Protein 7.9, Albumin 3.4, Globulin 4.5 H, Albumin/Globulin Ratio 0.8 L, PT 22.0 H, INR 2.02 H, WBC 10.7, RBC 4.19 L, Hgb 12.9, Hct 41.3, MCV 98.7 H, RDW 14.6, Plt Count 276, MPV 8.2, Gran % 85.8 H, Gran # 9.2 H, Total Counted 100, Lymphocytes % 5.8 L, Monocytes % 4.9, Eosinophils % 3.0, Basophils % 0.6, Neutrophils 89 H, Band Neutrophils 4, Lymphocytes (Manual) 5 L, Lymphocytes # 0.6 L, Monocytes (Manual) 2, Monocytes # 0.5, Eosinophils # 0.3, Basophils # 0.1, Toxic Granulation SL., Platelet Estimate NORMAL, Polychromasia 1+, Hypochromasia 2+, Poikilocytosis SL., Rouleaux SL., PUBS MCHC 31.2 L, MCH 30.7 Microbiology 05/23 3077 URINE CATH: Urine Culture - RECD Imaging: Radiology results: Results: 05/23/17 Right hip X-ray IMPRESSION: 1. Right femoral neck fracture. Basically subcapital fracture. Mild impaction. Mild Angulation. 05/23/17 CT of cervical spine ------IMPRESSION 1. No acute fracture evident. 2. Chronic appearing subluxation &Degenerative changes throughout C-spine 3. 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 Resulting long-standing Spinal stenosis at this level., warrants correlation. Up to 6 mm anterolisthesis of C3 on 4 on today's study.. (However prior CT scan image from 2003 suggested up to 5 mm listhesis back in 2003).. This listhesis appears due to degenerative disc & facet changes. Decreased height & sclerosis of offset left C3 facet could noted-may reflect old trauma here but clearly long-standing features.. Not acute C4/5. Fusion, obliterates this disc space Prominent degenerative disc changes and spondylosis at C5/6 C6/[address] of lumbar spine 05/23/17. ------IMPRESSION: ------- 1.. No Fracture nor Acute Findings.. 2. Postsurgical changes & prominent degenerative changes Lspine. Slight progressive Dextrorotoscoliosis lower L-spine since prior 2011 CT abdomen/pelvis study.. 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 Transitional vertebra at T12 with small rudimentary ribs. 3. Previous laminectomy L4/L5. Stable 10 mm Grade 2 anterolisthesis noted at this level, unchanged since 2012 CT abdomen.. Degenerative hypertrophic facet changes. Moderate bilateral foraminal encroachment L4/5. 4. L3/4. Pronounced central canal spinal stenosis... With Progression degenerative features at this level since 2012 -Slight progression of lumbar spondylosis/degenerative disc changes along with progressive posterior element hypertrophy. Rightward offset of L3 on L4 noted associated with the dextrorotoscoliosis noted. Progressive degenerative disc changes since 2012. 5... Marked degenerative disc changes L2/3 again noted. ,-No significant change 2011... Mild retrolisthesis & mild calcified disc bulge most evident to the right at this level again noted CT of thoracic spine IMPRESSION: No acute fracture or subluxation thoracic spine . No significant change since previous plain films T-spine Overall Stable appearing kyphosis & degenerative changes most evident in the T-spine.. Cardiomegaly. LAD. Pulmonary venous engorgement. Question mild vascular congestion.. . 05/23/17 CXR IMPRESSION: Limited supine portable chest on backboard. No focal pneumonia . No pneumothorax Prominent cardiomegaly. Pacemaker. Mild vascular engorgement accentuated by AP supine chest technique. Question mild vascular congestion. Disposition: Patient was discharged to go to [facility] in [facility] for continued rehab. Patient to continue with regular diet as tolerated. PT/OT to evaluate and treat. OOB daily. Followup with MD at [facility] within the week. Meds as per med reconciliation sheet. (Irma Cortes APRN) Problem List: 1. Fracture of right hip requiring operative repair 2. Cardiac pacemaker in situ 3. Anemia, unspecified 4. Long-term (current) use of anticoagulants 5. Chronic atrial fibrillation 6. Valvular heart disease 7. Polyarthralgia 8. Constipation Discharge medications: Stop taking the following medications: OXYCODONE HCL/ACETAMINOPHEN (Oxycodon-Acetaminophen 2.5-325) 1 EACH TABLET ORAL EVERY 6 HOURS NEEDED as needed for PAIN Qty = 60 Continue taking these medications: Levothyroxine Sodium (Levothyroxine Sodium) 50 MCG TABLET 50 MICROGRAM ORAL DAILY DULOXETINE HCL (Cymbalta) 60 MG CAPSULE. 60 MILLIGRAM ORAL DAILY DIGOXIN (Digox) 125 MCG TABLET 0.125 MILLIGRAM ORAL AT BEDTIME NIGHTLY Furosemide (Lasix 20MG) 20 MG TAB 20 MILLIGRAM ORAL EVERY OTHER DAY Instructions: TAKES EVERY OTHER DAY WITH POTASSIUM BISOPROLOL FUMARATE (Bisoprolol 5MG) 5 MG TABLET 2.5 MILLIGRAM ORAL TWICE A DAY Diltiazem HCl (Cartia Xt) 180 MG CAP.ER.24H 180 MILLIGRAM ORAL DAILY Omeprazole (Omeprazole 40MG) 40 MG CAPSULE.DR 40 MILLIGRAM ORAL TWICE A DAY Midodrine Hydrochloride (Midodrine Hcl) 5 MG TAB 5 MILLIGRAM ORAL THREE TIMES A DAY Warfarin Sodium (Coumadin) 2 MG TAB 2 MILLIGRAM ORAL DAILY Qty = 30 Instructions: Patient to start on 05/22/15. She is to take no Coumadin until then. Celecoxib (Celecoxib) 200 MG CAPSULE 200 MILLIGRAM ORAL DAILY Multivitamin/Iron/Folic Acid (Centrum Adults Tablet) 1 EACH TABLET 1 EACH ORAL DAILY POTASSIUM CHL (Potassium Chloride) 10 MEQ TABLET.ER 10 Milliequivalent ORAL EVERY OTHER DAY Instructions: TAKES EVERY OTHER DAY WITH FUROSEMIDE Cholecalciferol (Vitamin D3) (Vitamin D-3) 2,000 UNIT TABLET 2,000 UNIT ORAL DAILY Ferrous Sulfate (Ferrous Sulfate 325MG) 325 MG TABLET 325 MILLIGRAM ORAL TWICE A DAY Alprazolam (Alprazolam Xr) 0.5 MG TAB.ER.24H 0.5 MILLIGRAM ORAL EVERY MORNING Qty = 30 This prescription has been renewed Start taking the following new medications: DIGOXIN (Digox) 125 MCG TABLET 0.125 MILLIGRAM ORAL AT BEDTIME NIGHTLY Days = 30 No Refills OXYCODONE HCL/ACETAMINOPHEN (Percocet 5-325 MG Tablet) 1 EACH TABLET 1 TABLET ORAL EVERY 4 HOURS NEEDED as needed for MODERATE TO SEVERE PAIN Qty = 60 No Refills POLYETHYLENE GLYCOL (Miralax) 17 GM POWD.PACK 17 GRAM ORAL DAILY Qty = 30 No Refills SENNOSIDES/DOCUSATE SODIUM (Senna Plus Tablet) 1 EACH TABLET 1 TABLET ORAL DAILY NEEDED as needed for CONSTIPATION Qty = 30 No Refills Disposition: PLEASE SEE CORRECTED MED LIST. PATIENT SHOULD ONLY TAKE DIGOXIN ONCE DAILY. PLEASE CHECK CBC, BMP AND PT/INR IN ONE WEEK. (Kendrick Saleh MD) at 0845 at [phone]
[2017-05-26] MEDS ORDERED: DIGOXIN0.125 MG PO (09:52)
== END 2017-05-26 13:35 | DRG 482 ==
LOC: ER 18:13 → 2ND 20:24
PROVIDERS: Emergency Medicine; Family Medicine; General Practice; Orthopaedic Surgery
PROC: 0QS634Z Reposition Right Upper Femur with Internal Fixation Device, Percutaneous Approach (ICD-10-PCS; principal; 2017-05-24 16:00)
DX: S72.011A Unspecified intracapsular fracture of right femur, initial encounter for closed fracture (principal); I48.2 Chronic atrial fibrillation; D64.9 Anemia, unspecified; W01.0XXA Fall on same level from slipping, tripping and stumbling without subsequent striking against object, initial encounter; Y92.019 Unspecified place in single-family (private) house as the place of occurrence of the external cause; Z79.01 Long term (current) use of anticoagulants; Z95.0 Presence of cardiac pacemaker
CPT/HCPCS: C1713; J0131; J2405

== ENCOUNTER → 2017-06-09 | Outpatient (CLI) | payer MEDICARE ==
[~2017-06-09] MED LIST changes: +CELECOXIB200 MG PO; +CENTRUM ADULTS1 EACH PO; +FERROUS SULFAT325 M2 PO; +MIRALAX(PO17 GM/1 PA PO; +OXYCODONE AND A1 TA3 PO; +PERCOCET1 TAB PO; +SENNA PLUS 50 M1 TAB PO; +VITAMIN D-32000 UNIT PO
--- NOTE | 2017-06-09 15:40 | RADIOLOGY REPORT PS360 ---
HIP RT 2-3V W/PELVIS IF PERFOR HISTORY: Follow-up fracture and hip and placement AO 05/23/17...HIP PAIN ORDERING PHYSICIAN: Bon Villasenor MD PATIENT AGE: 87 years COMPARISON: 05/24/2017 FINDINGS: 3 pins remain present stabilizing the right femoral neck fracture with some minimal impaction and mild lateral angulation of the distal fracture fragment with no significant displacement. There is some increased sclerosis at the fracture line consistent with healing. IMPRESSION: Healing right femoral neck fracture status post ORIF
== END ==
LOC: RAD 14:00
DX: Z47.89 Encounter for other orthopedic aftercare (principal)